=== PATIENT | male | born 1990 | race Caucasian/White ===

== ENCOUNTER → 2018-02-23 11:27 | Outpatient (CLI) | payer SELFPAY | END | disposition home or self-care (01) | LOC: D.CT 11:27 | DX: R10.32 Left lower quadrant pain (principal) ==

== ENCOUNTER → 2019-04-08 14:31 | Outpatient (CLI) | payer BC | END | disposition home or self-care (01) | LOC: D.RAD 14:31 | PROVIDERS: ATTEND Urology | DX: N20.0 Calculus of kidney (principal) ==

== ENCOUNTER → 2019-04-08 18:05 | Outpatient (CLI) | payer BC | END | disposition home or self-care (01) | LOC: D.LABREF 18:05 | PROVIDERS: ATTEND Urology | DX: R31.9 Hematuria, unspecified (principal) ==